=== PATIENT | female | born 1970 | race Caucasian/White ===

== ENCOUNTER → 2016-07-26 20:22 | Outpatient (CLI) | payer MEDICAID ==
[2015-04-29 07:59] VITALS: BMI 30.7
[~2016-07-26 20:22] MED LIST: DILAUDID2 MG PO; DYAZIDE 37.5/251 CAP PO; ELIQUIS2.5 MG PO; ESTRACE2 MG PO; HYDROCODON-ACE1 EAC7 PO; HYDROCODONE-APA1 TAB PO; IBUPROFEN400 MG PO; SOMA250 MG PO; SOMA350 MG PO
== END | disposition home or self-care (01) ==
LOC: D.LABREF 20:22
DX: M25.561 Pain in right knee (principal)

== ENCOUNTER → 2016-07-26 20:23 | Outpatient (CLI) | payer MEDICAID ==
[2015-04-29 07:59] VITALS: BMI 30.7
== END | disposition home or self-care (01) ==
LOC: D.LABREF 20:23
DX: M25.561 Pain in right knee (principal); Z11.8 Encounter for screening for other infectious and parasitic diseases

== ENCOUNTER 2016-08-21 08:45 | Inpatient (IN) | payer MEDICAID ==
[2016-08-17 13:53] LABS: BASOPHILS 0.3 % (0.0-2.0); EOSINOPHILS 4.6 % (0-7); HEMATOCRIT 43.3 % (36.0-48.0); HEMOGLOBIN 14.6 g/dL (12-16); IMMATURE GRANULOCYTES 0.5 % (0-5); LYMPHOCYTES 24.1 % (15-50); MCH 30.2 pg (26.0-34.0); MCHC 33.7 g/dL (31.0-37.0); MCV 89.5 fL (80.0-100.0); MEAN PLATELET VOLUME 10.7 fL (7.4-10.4); MONOCYTES 10.9 % (2-11); NEUTROPHILS 59.6 % (40-80); RBC 4.84 10x6/uL (4.00-5.40); WBC 10.7 10x3/uL (4.8-10.8)
[2016-08-17 13:54] LABS: PLATELET COUNT 288 10x3/uL (130-400)
[2016-08-17 13:57] LABS: APPEARANCE CLEAR (CLEAR); BILIRUBIN NEGATIVE (NEGATIVE); COLOR YELLOW (YELLOW); GLUCOSE NEGATIVE (NEGATIVE); KETONE NEGATIVE (NEGATIVE); LEUKOCYTE ESTERASE NEGATIVE (NEGATIVE); NITRITE NEGATIVE (NEGATIVE); PROTEIN TRACE mg/dL (NEGATIVE); UROBILINOGEN NORMAL (NORMAL)
[2016-08-17 13:59] LABS: BACTERIA FEW /hpf (NONE SEEN); MUCUS <1+ /lpf (NONE SEEN); RED CELLS - URINE 0-5 /hpf (0-5); WHITE CELLS - URINE 0-5 /hpf (0-5)
[2016-08-17 14:02] LABS: APTT 25.2 SECONDS (22.8-39.4); INR 0.89 (0.85-1.17); PROTIME 11.9 SECONDS (11.6-15.0)
[2016-08-17 14:05] LABS: ANION GAP 8.1 mmol/L (8-16); CALCIUM 8.8 mg/dL (8.5-10.1); CARBON DIOXIDE 31.8 mmol/L (21.0-32.0); CREATININE - SERUM 0.9 mg/dL (0.6-1.3); POTASSIUM - SERUM 3.9 mmol/L (3.5-5.1)
[2016-08-21] VITALS (8 sets, daily range): BP systolic 140–183; BP diastolic 68–103; Ht 167.6 cm; Wt 90.5 kg
[~2016-08-21] VITALS: Ht 167.6 cm; Wt 90.5 kg
[~2016-08-21 08:45] MED LIST changes: -DILAUDID2 MG PO; -ELIQUIS2.5 MG PO; -SOMA250 MG PO; -SOMA350 MG PO
--- NOTE | 2016-08-21 08:57 | NUR ---
0813 DR. DERREK AGUILAR AND EDWARDO MCMULLEN.
--- NOTE | 2016-08-21 09:21 | NUR ---
7030 DR. OLIVER PAGED TO INFORM OF BP, RETURNED CALL, ORDERS RECEIVED
--- NOTE | 2016-08-21 10:09 | NUR ---
RT FOOT AND LEG WASHED WITH HIBICLENS AND ALCOHOL PRIOR TO CHLORPREP PER D.N.
--- NOTE | 2016-08-21 12:43 | NUR ---
REBLOCKED AT BEDSIDE BY DR OLIVER
--- NOTE | 2016-08-21 13:10 | NUR ---
RECEIVED TO ROOM 2209 AT THIS TIME FROM THE RECOVERY ROOM VIA BED. ALERT AND ORIENTED X4. C/O NAUSEA WITHOUT EMESIS. IV TO LEFT HAND PATENT. SCD'S ON AND IN WORKING ORDER. DRESSING TO RIGHT KNEE C/D/I. BED ALARM ON AND SPOUSE AT BEDSIDE. SRX2 WITH BED IN LOWEST POSITION AND WHEELS LOCKED. CALL LIGHT IN REACH, WILL CONTINUE WITH PLAN OF CARE.
--- NOTE | 2016-08-21 15:00 | NUR ---
PIECE JOBBER DILAUDID IN USE FOR PAIN. INCENTIVE SPIROMETER IN USE. FAMILY REMAINS AT BEDSIDE. WILL CONTINUE WITH PLAN OF CARE.
--- NOTE | 2016-08-21 16:22 | NUR ---
PRN FIORCET ADMINISTERED AT THIS TIME FOR PT'S C/O HEADACHE PAIN 05/01. PROVIDED WITH FAN. USING BEDPAN WITHOUT DIFFICULTY. FAMILY REMAINS AT BEDSIDE. CALL LIGHT IN REACH. WILL CONTINUE WITH PLAN OF CARE.
--- NOTE | 2016-08-21 18:00 | NUR ---
PRN NORCO-10 ADMINISTERED WELL ONE TIME ORDER OF PHENERGAN FOR PT'S CONTINUED HEADACHE. FAMILY AT BEDSIDE, WILL WAIT TO PLACE CPM ON PT UNTIL FAMILY LEAVES. WILL CONTINUE WITH PLAN OF CARE.
--- NOTE | 2016-08-21 18:23 | OP ---
PATIENT NAME: LORIN ALARCON MEDICAL RECORD: [id number] :70 LOCATION:D.MS [id number] ADMISSION DATE:08/21/16 SURGEON: SHERRY ANGLIN MD DATE OF OPERATION: 08/21/2016 PREOPERATIVE DIAGNOSIS: Painful hemiarthroplasty of the right knee. POSTOPERATIVE DIAGNOSIS: Painful hemiarthroplasty of the right knee. PROCEDURE: Revision total knee arthroplasty. SURGEON: Sherry Anglin MD ANESTHESIA: General. INTRAOPERATIVE COMPLICATIONS: None. SUMMARY OF PATHOLOGIC FINDINGS: Essentially none. The hemiarthroplasty was well fixed and well seated. There was some chondromalacia changes on the lateral side as well as the patellofemoral joint. OPERATIVE SUMMARY IN DETAIL: After obtaining the appropriate preoperative orthopedic surgery consents as well as anesthetic consultation, evaluation and clearance, the patient was brought to the operating room and placed on the operating table in supine position. After adequate general laryngeal mask airway was administered, tourniquet was placed about the proximal aspect of the right lower extremity. Right lower extremity was then prepped and draped in routine sterile fashion. Leg was elevated, exsanguinated and tourniquet was inflated to 350 mmHg. Previously utilized incision was taken down for a paramedian arthrotomy. The previously placed unicondylar arthroplasty was exposed and it was taken out with very little bone loss. Intramedullary guide hole was created for intramedullary-guided cut on the distal femur as it was on the proximal tibia. No need for ____ cutter augmentation was noted. Trials were put into place, taken through range of motion, felt to be stable in all planes. The final distal femoral and proximal tibial preparations were made as well as resection of the ____ articular surface of the patella. Final preparations of the patella were made. Cavity was cleansed with pulsatile lavage irrigation. This was then followed by cementing of all the implants. All excess cement was removed before it was allowed to harden. After the cement was allowed to harden, the knee was taken through a range of motion and found to be stable in all planes. IMPLANTS USED: [facility] Triathlon total knee arthroplasty system, size 31 x 9 patella size 4, cruciate sparing tibial insert, size 4 primary tibial baseplate, and size 4 primary cruciate retaining femoral component. After the knee was found to be stable in all planes, it was further irrigated and closed with 2-0 Ethibond followed by #1 Vicryl, 2-0 Vicryl and skin freddie. Sterile dressings were applied. Tourniquet was deflated. The patient was awakened, taken to the recovery room in stable condition. All final needle and sponge counts were correct. TRANSINT:[id number] Voice Confirmation ID: [id number] DOCUMENT ID: [id number] OPERATIVE REPORT [id number] LORIN ALARCON MD, SHERRY BERNAL at 1823 CC: [id number] DICTATION DATE: 08/21/16 1217 INTRAMURAL DIRECTOR: 08/21/16 1510 ADM IN [place] [id number] [place] [id number]
--- NOTE | 2016-08-22 01:03 | NUR ---
RESTING WITH EYES CLOSED, RESP WITH EASE, R KNEE DSG CDI, CL IN REACH
[2016-08-22 04:00] VITALS: BP 142/80
[2016-08-22 06:45] LABS: BASOPHILS 0.1 % (0.0-2.0); EOSINOPHILS 0.1 % (0-7); HEMATOCRIT 34.5 % (36.0-48.0); HEMOGLOBIN 11.3 g/dL (12-16); IMMATURE GRANULOCYTES 0.3 % (0-5); LYMPHOCYTES 9.6 % (15-50); MCH 29.5 pg (26.0-34.0); MCHC 32.8 g/dL (31.0-37.0); MCV 90.1 fL (80.0-100.0); MEAN PLATELET VOLUME 10.3 fL (7.4-10.4); MONOCYTES 10.5 % (2-11); NEUTROPHILS 79.4 % (40-80); RBC 3.83 10x6/uL (4.00-5.40); RDW 12.4 % (11.5-14.5); WBC 17.4 10x3/uL (4.8-10.8)
[2016-08-22 06:46] LABS: PLATELET COUNT 225 10x3/uL (130-400)
[2016-08-22 07:09] LABS: ANION GAP 10.5 mmol/L (8-16); BILIRUBIN - TOTAL 0.3 mg/dL (0.2-1.3); CALCIUM 8.7 mg/dL (8.5-10.1); CARBON DIOXIDE 27.3 mmol/L (21.0-32.0); CREATININE - SERUM 0.9 mg/dL (0.6-1.3); POTASSIUM - SERUM 3.8 mmol/L (3.5-5.1); PROTEIN - SERUM 6.1 g/dL (6.4-8.2)
--- NOTE | 2016-08-22 07:16 | NUR ---
PATIENT STABLE, USING A DILADID SPLASH LINE OPERATOR 0.2/04/25 FOR PAIN CONTROL, A&Ox3, FAMILY AT BEDSIDE. MINOR NEEDS NOTED LAST NIGHT FROM PATIENT.
--- NOTE | 2016-08-22 07:54 | NUR ---
PT SEEN AND ASSESSED. STATES DYE MACHINE OPERATOR IS HOLDING PAIN CONTROL AT MOMENT. RIGHT KNEE/LEG WRAPPED WITH NELSON WRAP FROM MID THIGH TO CALF-TOES ABLE TO MOVE FREELY AND ARE WARM AND PINK. CURRENTLY IN CPM MACHINE-FAMILY AT BEDSIDE. BED ALARM FOR SAFETY AND CALL LIGHT IN REACH
[2016-08-22 08:39] VITALS: BP 155/83
[2016-08-22 12:26] VITALS: BP 174/86
--- NOTE | 2016-08-22 13:47 | NUR ---
* Is the patient Alert and Oriented? Yes 0 * How many steps to enter\exit or inside your home? 4 0 * PCP Dr. Gutierrez 0 * Pharmacy [facility] in [place] 0 * Preadmission Environment Home with Family 0 * ADLs Independent 0 * Equipment Crutch Rolling Walker 0 * List name and contact numbers for known caregivers / representatives who currently or will assist patient after discharge: Spouse Jonathan [phone] 0 * Additional services required to return to the preadmission environment? Yes 0 * Can the patient safely return to the preadmission environment? Yes 0 * Has this patient been hospitalized within the prior 30 days at any hospital? No 08/22/2016 13:49 DCP: Discharge Planning Patient Name: LORIN ALARCON Admission Status: Elective Accout number: [id number] Admission Date: 08-21-2016 : 1970 Admission Diagnosis: Attending: DANTE Current LOS: 1 Anticipated DC Date: 08/23/16 Planned Disposition: Outpatient PT\OT Primary Insurance: [facility] PRIVATE OPTIONS [facility] Discharge Planning Comments: CM met with patient to assess dc plans/needs. Patient states she lives at home with her . She reports she is independent with all ADL's. She has crutches and a rolling walker. A CPM has been ordered through [facility] by MD office prior to admission & will be delivered to hospital prior to discharge. Patient has chosen to go to [facility] in [place] for outpatient physical therapy. Appt. scheduled 08/24 @ 1600. No other needs identified at this time. CM will follow. Automotive Artist: Niurka Anthony
[2016-08-22 16:58] VITALS: BP 149/79
[2016-08-22 19:00] VITALS: BP 150/78
--- NOTE | 2016-08-22 23:33 | NUR ---
PATIENT C/O 7-03/01 PAIN TO THE RIGHT KNEE. A&Ox3, NO APPARENT DISTRESS BESIDES PAIN. SCD ON. BED IN LOWEST LOCKED POSTION, HOB ELEVATED 15 DEGREES, CALL LIGHT WITHIN REACH, FAMILY AT BED SIDE, BED ALARM ON.
--- NOTE | 2016-08-22 23:50 | NUR ---
RESTING WITH EYES CLOSED, RESP WITH EASE, NO DISTRESSS NOTED, CL IN REACH
[2016-08-23 04:00] VITALS: BP 138/75
[2016-08-23 05:26] LABS: BASOPHILS 0.2 % (0.0-2.0); EOSINOPHILS 2.7 % (0-7); HEMATOCRIT 33.1 % (36.0-48.0); HEMOGLOBIN 10.7 g/dL (12-16); IMMATURE GRANULOCYTES 0.5 % (0-5); LYMPHOCYTES 19.8 % (15-50); MCH 29.4 pg (26.0-34.0); MCHC 32.3 g/dL (31.0-37.0); MCV 90.9 fL (80.0-100.0); MEAN PLATELET VOLUME 10.4 fL (7.4-10.4); MONOCYTES 12.1 % (2-11); NEUTROPHILS 64.7 % (40-80); PLATELET COUNT 197 10x3/uL (130-400); RBC 3.64 10x6/uL (4.00-5.40); RDW 12.7 % (11.5-14.5)
[2016-08-23 05:41] LABS: WBC 12.6 10x3/uL (4.8-10.8)
[2016-08-23 05:49] LABS: BILIRUBIN - TOTAL 0.49 mg/dL (0.2-1.3); CALCIUM 8.2 mg/dL (8.5-10.1); CARBON DIOXIDE 31.6 mmol/L (21.0-32.0); CREATININE - SERUM 0.9 mg/dL (0.6-1.3); POTASSIUM - SERUM 3.6 mmol/L (3.5-5.1); PROTEIN - SERUM 6.3 g/dL (6.4-8.2)
[2016-08-23 07:57] VITALS: BP 147/90
[2016-08-23] MEDS ORDERED: ELIQUIS2.5 MG PO (08:36)
[2016-08-23] MEDS ORDERED: DILAUDID2 MG PO (08:36)
[2016-08-23] MEDS ORDERED: SOMA350 MG PO (10:37)
--- NOTE | 2016-08-23 10:39 | NUR ---
08/23/2016 10:37 DCP: Discharge Planning Patient Name: LORIN ALARCON Encounter No: [id number] : 1970 Primary Insurance: [place] PRIVATE OPTIONS [place] Anticipated DC Date: Planned Disposition: Outpatient PT\OT External Planned Provider: [facility] Evens Reynolds DCP follow-up note: DC order rec'd. Patient and family in agreement with discharge plan. No changes to plan. CPM will be delivered to hospital prior to dc. Niurka Anthony
--- NOTE | 2016-08-23 10:55 | NUR ---
PT SEEN THIS AM. COMPLAINTS OF PAIN 03/01 THIS AM. PAIN PILL GIVEN AT 0730. DRESSING TO RIGHT KNEE CLEAN DRY AND INTACT. FAMILY AT BEDSIDE. FOR DISCHARGE LATER TODAY 0945-DRESSING CHANGED TO RIGHT KNEE. ALL CLIPS INTACT AND INCISION CLOSED. NO REDDNESS OR DRAINAGE NOTED. NEW AQUALCELL APPLIED.
[2016-10-20] MEDS ORDERED: HYDROCODONE-APA1 TAB PO (09:44)
== END 2016-08-23 11:30 | disposition home or self-care (01) | DRG 468 ==
LOC: D.SDCHOLD 08:45 → D.MS 09:13 → D.SDCHOLD 09:45 → D.MS 12:23
PROVIDERS: Family Medicine; ADMIT Orthopaedic Surgery
PROC: 0SPC0JZ Removal of Synthetic Substitute from Right Knee Joint, Open Approach (ICD-10-PCS; 2016-08-21)
PROC: 0SRC0J9 Replacement of Right Knee Joint with Synthetic Substitute, Cemented, Open Approach (ICD-10-PCS; principal; 2016-08-21 10:15)
DX: T84.84XA Pain due to internal orthopedic prosthetic devices, implants and grafts, initial encounter (principal); I10 Essential (primary) hypertension; N83.209 Unspecified ovarian cyst, unspecified side; M19.90 Unspecified osteoarthritis, unspecified site; M22.41 Chondromalacia patellae, right knee

== ENCOUNTER 2016-10-23 08:27 | Day surgery (SDC) | payer MEDICAID ==
[~2016-10-23] VITALS: Ht 167.6 cm; Wt 90.7 kg
--- NOTE | ~2016-10-23 | OP ---
PATIENT NAME: LORIN ALARCON MEDICAL RECORD: [id number] :70 LOCATION:D.OPS ADMISSION DATE: SURGEON: SHERRY ANGLIN MD DATE OF OPERATION: 10/23/2016 PREOPERATIVE DIAGNOSES: Stiff knee postoperative; arthrofibrosis, status post total knee arthroplasty. POSTOPERATIVE DIAGNOSES: Stiff knee postoperative; arthrofibrosis, status post total knee arthroplasty. PROCEDURE: Right knee manipulation under anesthesia. SURGEON: Sherry Anglin MD. ANESTHESIA: TIVA. INTRAOPERATIVE COMPLICATIONS: None. OPERATIVE SUMMARY IN DETAIL: After obtaining the appropriate preoperative orthopedic surgery consent as well as anesthetic consultation, evaluation and clearance, the patient was brought to the operating room and left on her hospital [facility]. She was given adequate TIVA anesthesia after having a lower extremity regional block. With good stabilization, the leg was manipulated to approximately 130 degrees of flexion and full extension. She had substantial amount of adhesive tissue that was broken down during the procedure. This was repeated several times. The patient was then awakened and taken to recovery room in stable condition. TRANSINT:[id number] Voice Confirmation ID: [id number] DOCUMENT ID: [id number] SHERRY ANGLIN MD CC: [id number] DICTATION DATE: 11/02/16 1420 INSTRUCTIONAL TECHNOLOGY INSTRUCTOR: 11/02/16 1828 [facility] 10/23/16 [place] [id number] [place] [address]
[~2016-10-23 08:27] MED LIST changes: +DILAUDID2 MG PO; +ELIQUIS2.5 MG PO; +SOMA350 MG PO
[2016-10-23 09:20] LABS: HEMATOCRIT 41.2 % (36.0-48.0); HEMOGLOBIN 13.7 g/dL (12-16); MCH 29.3 pg (26.0-34.0); MCHC 33.3 g/dL (31.0-37.0); MEAN PLATELET VOLUME 10.2 fL (7.4-10.4); RBC 4.68 10x6/uL (4.00-5.40); RDW 12.3 % (11.5-14.5); WBC 6.9 10x3/uL (4.8-10.8)
[2016-10-23 10:10] VITALS: BP 141/101; Ht 167.6 cm; Wt 90.7 kg
[2016-10-23] MEDS ORDERED: SOMA250 MG PO (12:00)
[2016-10-23] MEDS ORDERED: HYDROCODONE-APA1 TAB PO (12:00)
== END 2016-10-23 13:45 | disposition home or self-care (01) ==
LOC: D.OPS 08:27 → D.PAN 09:00 → D.OPS 11:15
PROVIDERS: Orthopaedic Surgery
DX: M24.661 Ankylosis, right knee (principal); Z96.651 Presence of right artificial knee joint

== ENCOUNTER → 2019-12-31 11:55 | Outpatient (CLI) | payer MEDICAID ==
[2016-10-23 10:10] VITALS: BMI 32.3
[~2019-12-31 11:55] MED LIST changes: +SOMA250 MG PO
[2019-12-31 12:31] LABS: BASOPHILS 0.4 % (0-2); EOSINOPHILS 2.7 % (0-7); HEMATOCRIT 44.7 % (36.0-48.0); HEMOGLOBIN 14.6 g/dL (12-16); IMMATURE GRANULOCYTES 0.2 % (0-5); MCH 29.8 pg (26.0-34.0); MCHC 32.7 g/dL (31.0-37.0); MCV 91.2 fL (80.0-100.0); MEAN PLATELET VOLUME 10.3 fL (7.4-10.4); MONOCYTES 9.5 % (2-11); NEUTROPHILS 64.2 % (40-80); RDW 11.8 % (11.5-14.5); WBC 9.3 10x3/uL (4.8-10.8)
[2019-12-31 12:47] LABS: ANION GAP 7.3 mmol/L (8-16); BILIRUBIN - TOTAL 0.32 mg/dL (0.2-1.3); C-REACTIVE PROTEIN 1.1 mg/dL (0.0-0.9); CALCIUM 9.3 mg/dL (8.5-10.1); CARBON DIOXIDE 33.4 mmol/L (21.0-32.0); CREATININE - SERUM 1.1 mg/dL (0.6-1.3); POTASSIUM - SERUM 3.7 mmol/L (3.5-5.1)
[2019-12-31 12:51] LABS: PLATELET COUNT 304 10x3/uL (130-400)
[2019-12-31 15:02] LABS: ERYTHROCYTE SEDIMENTATION RATE 12 mm/hr (0-20)
== END | disposition home or self-care (01) ==
LOC: D.LAB 11:55
PROVIDERS: ATTEND Orthopaedic Surgery
DX: M25.561 Pain in right knee (principal)

== ENCOUNTER → 2020-01-09 07:41 | Outpatient (CLI) | payer MEDICAID ==
[2016-10-23 10:10] VITALS: BMI 32.3
== END | disposition home or self-care (01) ==
LOC: D.NM 07:41
PROVIDERS: ATTEND Orthopaedic Surgery
DX: T84.032A Mechanical loosening of internal right knee prosthetic joint, initial encounter (principal)

== ENCOUNTER → 2020-01-14 19:00 | Outpatient (CLI) | payer MEDICAID ==
[2016-10-23 10:10] VITALS: BMI 32.3
== END | disposition home or self-care (01) ==
LOC: D.LABREF 19:00
PROVIDERS: ATTEND Orthopaedic Surgery
DX: M25.561 Pain in right knee (principal)

== ENCOUNTER 2020-01-16 08:22 | Inpatient (IN) | payer MEDICAID ==
[~2020-01-16] VITALS: Ht 167.6 cm; Wt 90.9 kg
[2020-01-28 11:29] LABS: BASOPHILS 0.3 % (0-2); EOSINOPHILS 2.1 % (0-7); HEMATOCRIT 42.4 % (36.0-48.0); HEMOGLOBIN 14.1 g/dL (12-16); IMMATURE GRANULOCYTES 0.3 % (0-5); LYMPHOCYTES 21.1 % (15-50); MCH 29.8 pg (26.0-34.0); MCHC 33.3 g/dL (31.0-37.0); MCV 89.6 fL (80.0-100.0); MEAN PLATELET VOLUME 9.4 fL (7.4-10.4); MONOCYTES 8.9 % (2-11); NEUTROPHILS 67.3 % (40-80); PLATELET COUNT 271 10x3/uL (130-400); RBC 4.73 10x6/uL (4.00-5.40); RDW 11.6 % (11.5-14.5)
[2020-01-28 11:38] LABS: ANION GAP 7.5 mmol/L (8-16); APTT 24.5 SECONDS (22.8-39.4); CALCIUM 9.5 mg/dL (8.5-10.1); CARBON DIOXIDE 32.4 mmol/L (21.0-32.0); CREATININE - SERUM 0.9 mg/dL (0.6-1.3); INR 0.88 (0.85-1.17); POTASSIUM - SERUM 3.9 mmol/L (3.5-5.1); PROTIME 11.9 SECONDS (11.6-15.0)
[2020-01-28 11:39] LABS: BILIRUBIN NEGATIVE (NEGATIVE); GLUCOSE NEGATIVE (NEGATIVE); KETONE NEGATIVE (NEGATIVE); NITRITE NEGATIVE (NEGATIVE); UROBILINOGEN NORMAL (NORMAL)
[2020-02-02] VITALS (10 sets, daily range): BP systolic 114–142; BP diastolic 60–87; Ht 167.6 cm; Wt 90.9 kg
[2020-02-02] MEDS ORDERED: LISINOPRIL-HCT1 EAC4 PO (09:48)
--- NOTE | 2020-02-02 14:38 | NUR ---
PT RECEIVED FROM RECOVERY TO ROOM 1212. RESP EVEN AND UNLABORED. ALERT AND ORIENTED TO PERSON PLACE TIME AND SITUATION. REPORTS PAIN 3/10 AT THIS TIME. IV TO LEFT HAND WITH 1/2 NS @ 100ML/HR INFUSING VIA PUMP. SITE WITHOUT REDNESS OR EDEMA. DRESSING C/D/I TO RIGHT LOWER EXTREMITY. EXTREMITY WARM TO TOUCH. PALPABLE PULSES. MOVEMENT NOTED IN TOES. ORIENTED TO ROOM, BED CONTROLS AND CALL LIGHT. CALL LIGHT WITHIN REACH. DENIES QUESTIONS OR FURTHER NEEDS. SCD TO LEFT LOWER EXTREMITY. BED ALARM ON. ENCOURAGED TO CALL WITH NEEDS. CONTINUE POC
--- NOTE | 2020-02-02 19:00 | NUR ---
REC'D REPORT. PATIENT RESTING IN BED WITH AT BEDSIDE AND NO S/S OF DISTRESS. BED IN LOWEST POSITION AND CALL LIGHT WITHIN REACH. ENCOURAGED THE PATIENT TO CALL IF SHE HAS NEEDS. WILL CONTINUE TO MONITOR.
--- NOTE | 2020-02-02 21:20 | NUR ---
ADMINISTERED MEDS PER ORDERS. PATIENT DENIES OTHER NEEDS. ASSESSMENT COMPLETED. ENCOURAGED TO CALL. WILL CONTINUE TO MONITOR.
[2020-02-03] VITALS (7 sets, daily range): BP systolic 98–122; BP diastolic 51–63
--- NOTE | 2020-02-03 07:21 | NUR ---
PT RESTING QUIETLY IN BED WITH EYES CLOSED. RESP EVEN AND UNLABORED. SPOUSE AT BEDSIDE. IV TO LEFT HAND WITH 1/2 NS @ 50ML/HR INFUSING VIA PUMP. SITE WITHOUT REDNESS OR EDEMA. DRESSING INTACT TO RIGHT LOWER EXTREMITY, C/D/I. EXTREMITY WARM TO TOUCH, PULSES PALPABLE. SCD TO LEFT LOWER EXTREMITY, PLEXI PULSE TO RIGHT. CL WITHIN REACH. BED ALARM ON. CONTINUE POC
[2020-02-03 08:10] LABS: HEMATOCRIT 34.6 % (36.0-48.0); HEMOGLOBIN 11.3 g/dL (12-16); MCHC 32.7 g/dL (31.0-37.0); MCV 91.8 fL (80.0-100.0); RBC 3.77 10x6/uL (4.00-5.40); RDW 11.8 % (11.5-14.5); WBC 18.2 10x3/uL (4.8-10.8)
--- NOTE | 2020-02-03 16:26 | MORECARE ---
CASE MANAGEMENT DISCHARGE SUMMARY PATIENT: LORIN TURNER UNIT: [id number] ADM DATE: 02/02/20 AGE: 49 : 70 SEX: F ROOM/BED: D.1212 AUTHOR: PRITESH CARVALHO PHYSICIAN: REFERRING PHYSICIAN: SHERRY ANGLIN MD DATE OF SERVICE: 02/03/20 Discharge Plan Patient Name: LORIN TURNER Facility: [facility]:[place] : 1970 Planned Disposition: Outpatient PT\OT Anticipated Discharge Date: 02/04/20 Discharge Date: Expected LOS: 2 Initial Reviewer: [email or web address] Initial Review Date: 02/03/2020 Generated: 02/03/20 5:26 pm DCPIA - Discharge Planning Initial Assessment Updated by [email or web address]: Elaine Tobin on 02/03/20 4:24 pm * Is the patient Alert and Oriented? Yes * How many steps to enter\exit or inside your home? 5 W/RAILS * PCP Dr. Michel Gutierrez * Pharmacy [facility] on [address] * Preadmission Environment Home with Family * ADLs Independent * Equipment Crutch Grab Bars Rolling Walker Shower Chair * List name and contact numbers for known caregivers / representatives who currently or will assist patient after discharge: Jonathan Turner, Spouse, * Verbal permission to speak to the caregivers and representatives has been obtained from the patient. Yes * Community resources currently utilized None * Additional services required to return to the preadmission environment? Yes * Can the patient safely return to the preadmission environment? Yes * Has this patient been hospitalized within the prior 30 days at any hospital? No External Providers External Provider: [facility] Outpt PT Next Contact Date: Service Request Date: Service Type: Resolution: Reviewer: Comments: Patient Name: LORIN TURNER Page [phone] at 1626 All edits/amendments must be made on the electronic document DICTATION DATE: 02/03/20 1626 HEALTH PROMOTION OFFICER: MO 02/03/20 162 RPT#: [id number] DC DATE: STATUS: ADM IN [facility] [address] [place] [address] END OF REPORT
--- NOTE | 2020-02-03 19:32 | NUR ---
PATIENT RESTING IN BED WITH NO S/S OF DISTRESS AND DENIES NEEDS AT THIS TIME. BED IN LOWEST POSITION AND CALL LIGHT WITHIN REACH. ENCOURAGED THE PATIENT TO CALL IF SHE HAS NEEDS. WILL CONTINUE TO MONITOR.
--- NOTE | 2020-02-03 20:14 | NUR ---
ADMINISTERED MEDS PER ORDERS. PATIENT DENIES OTHER NEEDS. ENCOURAGED TO CALL, WILL CONTINUE TO MONITOR.
[2020-02-04 04:56] VITALS: BP 136/74
--- NOTE | 2020-02-04 05:15 | NUR ---
PLACED PATIENT ON CPM TO RIGHT KNEE
[2020-02-04 07:42] LABS: HEMATOCRIT 32.8 % (36.0-48.0); HEMOGLOBIN 10.9 g/dL (12-16); MCH 30.6 pg (26.0-34.0); MCHC 33.2 g/dL (31.0-37.0); MCV 92.1 fL (80.0-100.0); MEAN PLATELET VOLUME 10.3 fL (7.4-10.4); RBC 3.56 10x6/uL (4.00-5.40); WBC 14.6 10x3/uL (4.8-10.8)
[2020-02-04 08:02] VITALS: BP 143/75
--- NOTE | 2020-02-04 09:58 | MORECARE ---
CASE MANAGEMENT DISCHARGE SUMMARY PATIENT: LORIN TURNER UNIT: [id number] ADM DATE: 02/02/20 AGE: 49 : [birth year] SEX: F ROOM/BED: D.1212 AUTHOR: DEVEN,DOC PHYSICIAN: REFERRING PHYSICIAN: SHERRY ANGLIN MD DATE OF SERVICE: 02/04/20 Discharge Plan Patient Name: LORIN TURNER Facility: [facility]:[place] : 1970 Planned Disposition: Outpatient PT\OT Anticipated Discharge Date: 02/04/20 Discharge Date: Expected LOS: 2 Initial Reviewer: [email or web address] Initial Review Date: 02/03/2020 Generated: 02/04/20 10:58 am DCPIA - Discharge Planning Initial Assessment Updated by [email or web address]: Elaine Tobin on 02/03/20 4:24 pm * Is the patient Alert and Oriented? Yes * How many steps to enter\exit or inside your home? 5 W/RAILS * PCP Dr. Michel Gutierrez * Pharmacy [facility] on [address] * Preadmission Environment Home with Family * ADLs Independent * Equipment Crutch Grab Bars Rolling Walker Shower Chair * List name and contact numbers for known caregivers / representatives who currently or will assist patient after discharge: Jonathan Turner, Spouse, * Verbal permission to speak to the caregivers and representatives has been obtained from the patient. Yes * Community resources currently utilized None * Additional services required to return to the preadmission environment? Yes * Can the patient safely return to the preadmission environment? Yes * Has this patient been hospitalized within the prior 30 days at any hospital? No External Providers External Provider: OTHER-OTHER Next Contact Date: Service Request Date: Service Type: Resolution: Reviewer: Comments: Coverage Notice Reviewer: [email or web address] - Elaine Tobin Notice Issued Date-Time: 02/03/2020 13:46 Notice Type: Patient Choice Letter Notice Delivered To: Patient Relationship to Patient: Self Host Name: Delivery Method: HAND - Hand Delivered Elda Days: Prior Verbal Notification: Recipient Understood Notice: Yes Recipient Signature: Yes Med Rec Note Co-signed by Attending: Coverage Notice Comment: [facility] Outpatient Therapy Last DP export: 02/03/20 3:26 p Patient Name: LORIN TURNER Page [phone] at 0958 All edits/amendments must be made on the electronic document DICTATION DATE: 02/04/20957 HEALTH SERVICE WORKER: MO 02/04/20957 RPT#: [id number] DC DATE: STATUS: ADM IN [facility] [address] [place] [address] END OF REPORT
[2020-02-04] MEDS ORDERED: ELIQUIS2.5 MG PO (11:13)
[2020-02-04] MEDS ORDERED: PERCOCET 10-321 EAC1 PO (11:13)
--- NOTE | 2020-02-04 15:48 | OP ---
PATIENT NAME: LORIN ALARCON MEDICAL RECORD: [id number] :70 LOCATION:D.M3 D.1212 ADMISSION DATE:02/02/20 SURGEON: SHERRY ANGLIN MD DATE OF OPERATION: 02/02/2020 PREOPERATIVE DIAGNOSIS: Painful right total knee arthroplasty. POSTOPERATIVE DIAGNOSIS: Painful right total knee arthroplasty. PROCEDURE: Revision total knee arthroplasty. SURGEON: Sherry Anglin MD ARCHITECT MARINE: JOYCE Bob INTRAOPERATIVE COMPLICATIONS: None. SUMMARY OF PATHOLOGIC FINDINGS: As predicted by the radiographs, the patient's tibial baseplate had subsided into the proximal tibia. It was not overtly loose; however, it had subsided causing some varus deformity, revision system used was Triathlon total stabilizing implant. OPERATIVE SUMMARY IN DETAIL: After obtaining the appropriate preoperative orthopedic surgery consent as well as anesthetic consultation, evaluation and clearance, the patient was brought to the operating room and placed on the operating table in supine position. After general laryngeal mask airway was administered, tourniquet was placed about the proximal aspect of the right lower extremity. The right lower extremity was then prepped and draped in routine sterile fashion. The leg was elevated and exsanguinated, tourniquet inflated to 350 mmHg. At this the time, the appropriate timeout was taken and agreed upon by all in the operative suite, given the patient's unique identifiers. A midline incision was made over the previous incision, taken down for paramedian arthrotomy. Patella was subluxed laterally and the distal femur was exposed. While it was not overtly loose, I felt like for total stabilized implant the entire system had to be removed. Serial and sequential removal of the distal femur was done with very little degree of blood loss. Having completed this, attention was turned to the proximal tibia. Proximal tibia was also removed with little degree of bone loss. The patella was in overall good condition and it was left in situ. Attention was first turned to the femur. Serial and sequential reaming and broaching were done for a size 14 x 150 stem. It did require distal and posterior augmentation of 5 on both sides respectively. After chamfer cuts were made, the trials was put into place and left in place with good fit and fill, while the tibia was approached. Serial and sequential reaming and broaching were done after all excess cement was removed. Reaming here was also done for a size 14 x 100, it did require an offset as did the femur. This was put into place. The trials were then taken through range of motion with a size 11 spacer. It is of note that the patient also required a 5-mm augments on the tibia as well. Once the knee was found to be stable with the appropriate trials. All the trials were removed. Final components were assembled on the back table and after substantial irrigation with pulsatile lavage. The knee ends were dried and the distal femur and proximal tibial components were cemented into place. Polyethylene was put into place and then affixed with a central post. Range of motion was then found to be excellent in all planes with excellent stability. A gram of vancomycin and a OPERATIVE REPORT [id number] LORIN ALARCON gram of tobramycin were placed into the knee cavity. This was followed by a 2-0 Ethibond reapproximation of the hip capsule by JOYCE Bob and this was then followed by #1 Vicryl, 2-0 Vicryl and skin freddie for final skin reapproximation. Having completed this, sterile dressings were applied. Tourniquet was deflated. The patient was awakened and taken to recovery room in stable condition. All final needle and sponge counts were correct. TRANSINT:[id number] Voice Confirmation ID: [id number] DOCUMENT ID: [id number] DERREK ROLLINS, SHERRY BERNAL at 1548 CC: [id number] DICTATION DATE: 02/04/20 1144 DIGITAL CARTOGRAPHIC TECHNICIAN: 02/04/20 1350 ADM IN [place] [id number] [place] [address]
--- NOTE | 2020-02-04 16:39 | NUR ---
DISCHARGE PAPERWORK SIGNED, ALL QUESTIONS ANSWERED. IV TO RIGHT FOREARM DC'D, TIP INTACT. ESCORTED OUT VIA WHEELCHAIR.
--- NOTE | 2020-02-05 00:50 | MORECARE ---
CASE MANAGEMENT DISCHARGE SUMMARY PATIENT: LORIN TURNER UNIT: [id number] ADM DATE: 02/02/20 AGE: 49 : 70 SEX: F ROOM/BED: D.1212 AUTHOR: PRITESH CARVALHO PHYSICIAN: REFERRING PHYSICIAN: SHERRY ANGLIN MD DATE OF SERVICE: 02/05/20 Discharge Plan Patient Name: LORIN TURNER Facility: [facility]:[place] : 1970 Planned Disposition: Outpatient PT\OT Anticipated Discharge Date: 02/04/20 Discharge Date: 02/04/2020 Expected LOS: 2 Initial Reviewer: [email or web address] Initial Review Date: 02/03/2020 Generated: 02/05/20 1:50 am DCPIA - Discharge Planning Initial Assessment Updated by [email or web address]: Elaine Tobin on 02/03/20 4:24 pm * Is the patient Alert and Oriented? Yes * How many steps to enter\exit or inside your home? 5 W/RAILS * PCP Dr. Michel Gutierrez * Pharmacy [facility] on [address] * Preadmission Environment Home with Family * ADLs Independent * Equipment Crutch Grab Bars Rolling Walker Shower Chair * List name and contact numbers for known caregivers / representatives who currently or will assist patient after discharge: Jonathan Turner, Spouse, * Verbal permission to speak to the caregivers and representatives has been obtained from the patient. Yes * Community resources currently utilized None * Additional services required to return to the preadmission environment? Yes * Can the patient safely return to the preadmission environment? Yes * Has this patient been hospitalized within the prior 30 days at any hospital? No Coverage Notice Reviewer: [id number] - Elaine Tobin Notice Issued Date-Time: 02/03/2020 13:46 Notice Type: Patient Choice Letter Notice Delivered To: Patient Relationship to Patient: Self Road Worker Name: Delivery Method: HAND - Hand Delivered Elda Days: Prior Verbal Notification: Recipient Understood Notice: Yes Recipient Signature: Yes Med Rec Note Co-signed by Attending: Coverage Notice Comment: [facility] Outpatient Therapy Last DP export: 02/04/20 8:58 a Patient Name: LORIN TURNER Page [phone] at 0050 All edits/amendments must be made on the electronic document DICTATION DATE: 02/05/2049 CUSTOM FEED MILL OPERATOR: MO 02/05/2049 RPT#: [id number] DC DATE:02/04/20 STATUS: DIS IN [facility] [address] [place] [address] END OF REPORT
== END 2020-02-04 16:40 | disposition home or self-care (01) | DRG 468 ==
LOC: D.M2 01-28 10:00 → D.SDCHOLD 01-28 10:00 → D.M3 02-02 09:09 → D.SDCHOLD 02-02 09:30 → D.M3 02-02 13:52
PROVIDERS: ADMIT Orthopaedic Surgery; ATTEND Orthopaedic Surgery
PROC: 0SWC0JZ Revision of Synthetic Substitute in Right Knee Joint, Open Approach (ICD-10-PCS; principal; 2020-02-02 10:45)
DX: T84.84XA Pain due to internal orthopedic prosthetic devices, implants and grafts, initial encounter (principal); T84.032A Mechanical loosening of internal right knee prosthetic joint, initial encounter; Z96.651 Presence of right artificial knee joint; M25.561 Pain in right knee

== ENCOUNTER → 2020-04-06 12:05 | Outpatient (CLI) | payer MEDICAID ==
[2020-02-02 17:36] VITALS: BMI 32.3
[~2020-04-06 12:05] MED LIST changes: +LISINOPRIL-HCT1 EAC4 PO; +PERCOCET 10-321 EAC1 PO
[2020-04-06 12:29] LABS: BASOPHILS 0.2 % (0-2); EOSINOPHILS 5.1 % (0-7); HEMATOCRIT 39.1 % (36.0-48.0); HEMOGLOBIN 12.5 g/dL (12-16); IMMATURE GRANULOCYTES 0.1 % (0-5); LYMPHOCYTES 23.8 % (15-50); MCV 90.7 fL (80.0-100.0); MEAN PLATELET VOLUME 9.4 fL (7.4-10.4); MONOCYTES 8.8 % (2-11); RBC 4.31 10x6/uL (4.00-5.40); RDW 12.7 % (11.5-14.5); WBC 8.1 10x3/uL (4.8-10.8)
[2020-04-06 12:30] LABS: PLATELET COUNT 320 10x3/uL (130-400)
[2020-04-06 14:43] LABS: ERYTHROCYTE SEDIMENTATION RATE 21 mm/hr (0-20)
== END | disposition home or self-care (01) ==
LOC: D.LAB 12:05
PROVIDERS: ATTEND Orthopaedic Surgery
DX: M25.561 Pain in right knee (principal); T84.84XA Pain due to internal orthopedic prosthetic devices, implants and grafts, initial encounter